=== PATIENT | male | born 1940 | race Caucasian/White ===

== ENCOUNTER 2016-12-16 18:29 | Emergency (ER) | payer MEDICARE, OTHER ==
[2016-12-16 18:40] VITALS: BP 167/106
--- NOTE | 2016-12-16 19:29 | EDM.PDOC ---
ED HPI GENERAL MEDICAL PROBLEM - General Chief Complaint: Diabetic Complaint Stated Complaint: DIABETIC/IS TRAVELING AND IS OUT OF INSULIN Time Seen by Provider: 12/16/16 19:19 Source of Information: Reports: Patient, Significant Other History Limitations: Reports: No Limitations - History of Present Illness INITIAL COMMENTS - FREE TEXT/NARRATIVE: A very pleasant 76 year old male presents to the ER for a refill of his lantus. Patient is from [place]. He is road tripping to [place] for fly fishing for several weeks. He believes he left his lantus at a hotel in [place] and has now been out for the last 3 days. He has not been checking his sugars. He has attempted to control his diabetes by improving his diet the last few days. He does have oral diabetic medications and continues to take these as prescribed. Reports symptoms of polyuria and polydipsia. Denies any malaise, headaches, chest pain, shortness of breath, abdominal pain, nausea, vomiting or headaches. Type 2 diabetic x 4 years. Reportedly takes 40 units of lantus every am and 20 units every pm. He does confess to me he does follow more of a sliding scale on his own so he may indulge in certain foods. States sugars normally run 30s to 100s. States he was told to keep his sugars around 30. No history of any kidney problems. is present at the bedside and confirms my suspicion that he suffers from dementia. - Related Data Allergies Allergy/AdvReac Type Severity Reaction Status Date / Time No Known Allergies Allergy Verified 12/16/16 18:34 Home Meds: Home Meds Insulin Glarg,Human.Rec.Analog [LantUS] 20 unit SQ BID #15 vial 12/16/16 [Rx] Past Medical History Cardiovascular History: Reports: High Cholesterol, Hypertension Musculoskeletal History: Reports: Osteoarthritis Endocrine/Metabolic History: Reports: Diabetes, Type II - Past Surgical History Cardiovascular Surgical History: Reports: Coronary Artery Bypass Social & Family History - Tobacco Use Smoking Status *Q: Unknown Ever Smoked - Recreational Drug Use Recreational Drug Use: No ED ROS GENERAL - Review of Systems Review Of Systems: See Below Constitutional: Denies: Malaise Respiratory: Denies: Shortness of Breath Cardiovascular: Denies: Chest Pain Endocrine: Reports: Polydypsia, Polyuria GI/Abdominal: Denies: Abdominal Pain, Nausea, Vomiting Neurological: Denies: Headache ED EXAM GENERAL NO PERIP PULSE - Physical Exam Exam: See Below Exam Limited By: No Limitations General Appearance: Alert, WD/WN, No Apparent Distress Ears: Normal External Exam Nose: Normal Inspection Throat/Mouth: Normal Inspection, Normal Lips, Normal Voice, No Airway Compromise Respiratory/Chest: No Respiratory Distress, Lungs Clear, Normal Breath Sounds Cardiovascular: Normal Peripheral Pulses, Regular Rate, Rhythm, No Murmur Neurological: Alert, Confused Psychiatric: Normal Affect, Normal Mood Skin Exam: Warm, Dry, Normal Color Comments: bedside blood sugar 294 Course - Vital Signs Last Recorded V/S: Last Vital Signs Temp 36.6 C 12/16/16 18:35 Pulse 95 12/16/16 18:35 Resp 18 12/16/16 18:35 BP 167/106 H 12/16/16 18:35 Pulse Ox 96 12/16/16 18:35 - Orders/Labs/Meds Labs: Laboratory Tests 12/16/16 12/16/16 12/16/16 Range/Units 19:31 19:44 19:44 WBC 4.37 (4.23-9.07) K/mm3 RBC 4.38 L (4.63-6.08) M/mm3 Hgb 14.1 (13.7-17.5) gm/L Hct 39.2 L (40.1-51.0) % MCV 89.5 (79.0-92.2) fl MCH 32.2 (25.7-32.2) pg MCHC 36.0 H (32.2-35.5) g/dl RDW Std Deviation 40.5 (35.1-43.9) fL Plt Count 131 L (163-337) K/mm3 MPV 10.0 (9.4-12.3) fl Neut % (Auto) 48.3 (34.0-67.9) % Lymph % (Auto) 36.6 (21.8-53.1) % Butler % (Auto) 11.7 (5.3-12.2) % Eos % (Auto) 3.0 (0.8-7.0) Baso % (Auto) 0.2 (0.1-1.2) % Neut # (Auto) 2.11 (1.78-5.38) K/mm3 Lymph # (Auto) 1.60 (1.32-3.57) K/mm3 Butler # (Auto) 0.51 (0.30-0.82) K/mm3 Eos # (Auto) 0.13 (0.04-0.54) K/mm3 Baso # (Auto) 0.01 (0.01-0.08) K/mm3 Sodium 136 (136-145) mEq/L Potassium 4.0 (3.5-5.1) mEq/L Chloride 101 (98-107) mEq/L Carbon Dioxide 26 (21-32) mEq/L Anion Gap 13.0 (5-15) BUN 25 H (7-18) mg/dL Creatinine 1.3 (0.7-1.3) mg/dL Est Cr Clr Drug Dosing 49.85 mL/min Estimated GFR (MDRD) 54 (>60) mL/min BUN/Creatinine Ratio 19.2 H (14-18) Glucose 319 H (83-115) mg/dL POC Glucose 294 H (83-110) mg/dL Calcium 9.4 (8.5-10.1) mg/dL Total Bilirubin 0.9 (0.2-1.0) mg/dL AST 19 (15-37) U/L ALT 34 (16-63) U/L Alkaline Phosphatase 35 L (46-116) U/L Total Protein 7.0 (6.4-8.2) g/dl Albumin 4.3 (3.4-5.0) g/dl Globulin 2.7 gm/dL Albumin/Globulin Ratio 1.6 (1-2) Urine Color (Yellow) Urine Appearance (Clear) Urine pH (5.0-8.0) Ur Specific Cisco (1.005-1.030) Urine Protein (Negative) Urine Glucose (UA) (Negative) Urine Ketones (Negative) Urine Occult Blood (Negative) Urine Nitrite (Negative) Urine Bilirubin (Negative) Urine Urobilinogen (0.2-1.0) Ur Leukocyte Esterase (Negative) 12/16/16 Range/Units 20:05 WBC (4.23-9.07) K/mm3 RBC (4.63-6.08) M/mm3 Hgb (13.7-17.5) gm/L Hct (40.1-51.0) % MCV (79.0-92.2) fl MCH (25.7-32.2) pg MCHC (32.2-35.5) g/dl RDW Std Deviation (35.1-43.9) fL Plt Count (163-337) K/mm3 MPV (9.4-12.3) fl Neut % (Auto) (34.0-67.9) % Lymph % (Auto) (21.8-53.1) % Butler % (Auto) (5.3-12.2) % Eos % (Auto) (0.8-7.0) Baso % (Auto) (0.1-1.2) % Neut # (Auto) (1.78-5.38) K/mm3 Lymph # (Auto) (1.32-3.57) K/mm3 Butler # (Auto) (0.30-0.82) K/mm3 Eos # (Auto) (0.04-0.54) K/mm3 Baso # (Auto) (0.01-0.08) K/mm3 Sodium (136-145) mEq/L Potassium (3.5-5.1) mEq/L Chloride (98-107) mEq/L Carbon Dioxide (21-32) mEq/L Anion Gap (5-15) BUN (7-18) mg/dL Creatinine (0.7-1.3) mg/dL Est Cr Clr Drug Dosing mL/min Estimated GFR (MDRD) (>60) mL/min BUN/Creatinine Ratio (14-18) Glucose (83-115) mg/dL POC Glucose (83-110) mg/dL Calcium (8.5-10.1) mg/dL Total Bilirubin (0.2-1.0) mg/dL AST (15-37) U/L ALT (16-63) U/L Alkaline Phosphatase (46-116) U/L Total Protein (6.4-8.2) g/dl Albumin (3.4-5.0) g/dl Globulin gm/dL Albumin/Globulin Ratio (1-2) Urine Color Yellow (Yellow) Urine Appearance Clear (Clear) Urine pH 6.0 (5.0-8.0) Ur Specific Cisco 1.025 (1.005-1.030) Urine Protein Negative (Negative) Urine Glucose (UA) 2+ H (Negative) Urine Ketones Trace H (Negative) Urine Occult Blood Negative (Negative) Urine Nitrite Negative (Negative) Urine Bilirubin Negative (Negative) Urine Urobilinogen 0.2 (0.2-1.0) Ur Leukocyte Esterase Negative (Negative) - Re-Assessments/Exams Free Text/Narrative Re-Assessment/Exam: 12/16/16 20:47 Labs returned WBC is 4.37, hgb is 14.1 and plts are 131 sodium is 136, potassium is 4.0, chloride is 101. Anion gap is 13.0. Glucose is 319 UA has 2+ gluclose and trace ketones Reviewed labs with the patient. Unfortunately we do not have any lantus at the hospital. While the patient's blood sugar is high he is in no immediate danger. Plan will be to refill his lantus. He is to go straight to the pharmacy and fill the medication and take tonight. Plan reviewed with both him and his . Directions to the pharmacy given. 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 40 units in the morning and 20 units in the p.m. [place] pharmacy located in the [facility] is open until 10 PM tonight[place] [address] They [place] be on the left-hand side. Next to runnings. Check your blood sugars as directed. Follow up with your primary care provider as needed. Please return to the ER if symptoms change or worsen.
== END 2016-12-16 20:55 | disposition home or self-care (01) ==
LOC: JD.ED 18:29
DX: E11.65 Type 2 diabetes mellitus with hyperglycemia (principal); E78.00 Pure hypercholesterolemia, unspecified; M19.90 Unspecified osteoarthritis, unspecified site; Z95.1 Presence of aortocoronary bypass graft; Z79.4 Long term (current) use of insulin
CPT/HCPCS: 36415; 80053; 81003; 82962; 85025; 99282; 99283